=== PATIENT | female | born 1950 | race Caucasian/White ===

== ENCOUNTER → 2020-01-29 13:57 | Outpatient (CLI) | payer MEDICARE, BC, SELFPAY ==
--- NOTE | ~2020-01-29 | XR_ITS ---
EXAMINATION: XR chest 2V 01/29/2020 14:20 INDICATION: Bronchitis PROCEDURE: 2 view chest COMPARISON: No prior studies for comparison. FINDINGS: The lungs are clear. The cardiomediastinal silhouette is within normal limits. There are no pleural effusions. There is no pneumothorax suspected. IMPRESSION: 1: NO ACUTE CARDIOPULMONARY DISEASE. Reviewed, dictated and finalized at location B. RANCE EXAMINER
== END ==
DX: J40 Bronchitis, not specified as acute or chronic (principal)
CPT/HCPCS: 71046

== ENCOUNTER 2020-05-03 10:45 | Outpatient (CLI) | payer MEDICARE, BC, SELFPAY ==
--- NOTE | ~2020-05-03 | MR_ITS ---
EXAMINATION: MR brain/brain stem wo con EXAM DATE: 05/03/2020 11:39 INDICATION: Dizziness, symptoms one year. TECHNIQUE: Magnetic resonance imaging (MRI) of the brain/brain stem obtained without contrast. Briseidaitt al T1, axial diffusion, gradient echo (T2*), T1, T2, FLAIR sequences obtained. There is no prior st udy for comparison. FINDINGS: There are no areas of restricted diffusion to suggest acute infarction. There is no acute hemorrhage seen on the T2*, a hemosiderin sensitive sequence. No intraparenchymal brain mass. The ve ntricles are normal in size. There are no extra-axial collections. Flow voids are seen in the cereb ral arteries on the T2-weighted sequences consistent with their expected patency. The orbits are unr emarkable. Soft tissue is unremarkable. IMPRESSION: 1. Unremarkable brain MRI examination. Reviewed, dictated and finalized at location A.
== END 2020-05-03 10:46 | disposition home or self-care (01) ==
DX: R42 Dizziness and giddiness (principal)
CPT/HCPCS: 70551

== ENCOUNTER 2020-06-26 14:44 | Outpatient (CLI) | payer MEDICARE, BC, SELFPAY ==
--- NOTE | 2020-06-26 | ECG_ITS ---
Measurements Intervals [place] Rate: 79 P: 72 [place]: 136 QRS: 18 QRSD: 85 T: 64 QT: 386 QTc: 443 Interpretive Statements SINUS RHYTHM POSSIBLE LEFT ATRIAL ENLARGEMENT EARLY PRECORDIAL R/S TRANSITION BASELINE ARTIFACT- I, III, AVL, AVF BORDERLINE ECG Electronically Signed On 06-26-2020 16:32:54 CDT by Dino Dunn D.O.
== END 2020-06-26 14:45 | disposition home or self-care (01) ==
LOC: ANHLAB 14:53 → ANHCARD 14:54
DX: M20.11 Hallux valgus (acquired), right foot (principal)
CPT/HCPCS: 93005

== ENCOUNTER 2021-03-19 07:37 | Outpatient (CLI) | payer MEDICARE, BC, SELFPAY ==
--- NOTE | ~2021-03-19 | US_ITS ---
EXAMINATION: US abdomen complete DATE: 03/19/2021 08:27 INDICATION: Abnormal findings on diagnostic imaging of other specified body structure. TECHNIQUE: Multiple grayscale and Doppler ultrasound images of the abdomen were obtained. COMPARISON: None FINDINGS: Abdominal aorta is normal in caliber. Inferior vena cava is normal. The visualized portions of the head, body, and tail of the pancreas are normal. The liver is normal without focal lesion. No liver surface nodularity. The gallbladder is normal in size. No gallstones or gallbladder wall thick ening. There was no sonographic Carlson sign. The common duct is normal and measures 4 mm. Right kidne y measures 9.0 x 3.8 x 5.3 cm. Left kidney measures 9.0 x 3.9 x 3.6 cm. The spleen is normal in size. IMPRESSION: 1. Normal complete abdomen ultrasound. Reviewed, dictated and finalized at location D.
== END 2021-03-19 07:38 | disposition home or self-care (01) ==
PROVIDERS: PCP Family Medicine; Visit Provider Family Medicine
DX: R93.89 Abnormal findings on diagnostic imaging of other specified body structures (principal)
CPT/HCPCS: 76700

== ENCOUNTER → 2021-07-01 12:12 | Outpatient (CLI) | payer MEDICARE, BC, SELFPAY ==
--- NOTE | ~2021-07-01 | MR_ITS ---
EXAMINATION: MR shoulder RT wo con DATE: 07/01/2021 13:02 INDICATION: Right rotator cuff tear. Right shoulder pain. TECHNIQUE: Magnetic resonance imaging (MRI) of the right shoulder was performed without intravenous c ontrast. Sequences included axial PD-weighted FS FSE, coronal oblique PD-weighted FS FSE and T2-weigh daniel FS FSE, and sagittal oblique T2-weighted FS FSE and T1-weighted FSE. COMPARISON: None. FINDINGS: Coracoacromial arch: The acromion undersurface is curved in morphology (type II). There is mild osteoarthritis of acromioc lavicular joint including inferiorly directed osteophytes. There is mild subacromial/subdeltoid bursi tis. Rotator cuff: There is moderate supraspinatus and infraspinatus tendinopathy. Teres minor tendon is normal. Subscap ularis tendon is normal. There is no asymmetric fatty atrophy of the rotator cuff muscle bellies. Biceps tendon and glenoid labrum: Biceps tendon is in bicipital groove. Intra-articular biceps tendon is normal. The glenoid labrum is intact. Fluid: There is no glenohumeral joint effusion. Bones/cartilage: Glenoid cartilage is normal. Humeral head cartilage is normal. IMPRESSION: 1. Moderate rotator cuff tendinopathy. No tear. 2. Mild acromioclavicular joint osteoarthritis. 3. Mild subacromial/subdeltoid bursitis. Reviewed, dictated and finalized at location A.
== END ==
PROVIDERS: PCP Family Medicine; Visit Provider Family Medicine
DX: M19.011 Primary osteoarthritis, right shoulder (principal); M75.51 Bursitis of right shoulder
CPT/HCPCS: 73221

== ENCOUNTER → 2021-08-18 14:20 | Outpatient (CLI) | payer MEDICARE, BC, SELFPAY ==
--- NOTE | ~2021-08-18 | XR_ITS ---
EXAMINATION: SACRUM/COCCYX DATE: 08/18/2021 14:50 INDICATION: Low back pain TECHNIQUE: Three views sacrum/coccyx FINDINGS: No prior studies for comparison. There is no displaced fracture of the sacrum. The coccyx demonstrates overall normal morphology with out acute angulation. IMPRESSION: 1. No acute displaced osseous abnormality of the sacrum. Suspicion for occult or nondisplaced sacral fracture can either be evaluated with CT or MRI. 2. Grossly normal morphology to the coccyx without acute angulation. However, due to the wide range of normal variation of the coccyx, acute injury would be best evaluated by clinical examination and patient's symptoms. Reviewed, dictated and finalized at location A.
--- NOTE | ~2021-08-18 | XR_ITS ---
EXAMINATION: XR pelvis 1-2V DATE: 08/18/2021 14:50 INDICATION: Myalgia with right buttock pain. TECHNIQUE: An anteroposterior view of the pelvis was obtained. COMPARISON: 08/18/2021 FINDINGS: Bone alignment is normal. No fracture or suspected avascular necrosis. Bilateral hip and sacroiliac j oint spaces are normal. A few phleboliths in the pelvis. IMPRESSION: 1. No acute osseous abnormality. Reviewed, dictated and finalized at location A.
== END ==
PROVIDERS: PCP Family Medicine; Visit Provider Family Medicine
DX: M79.18 Myalgia, other site (principal)
CPT/HCPCS: 72170; 72220

== ENCOUNTER → 2022-06-21 16:52 | Outpatient (CLI) | payer MEDICARE, BC, SELFPAY ==
--- NOTE | ~2022-06-21 | XR_ITS ---
EXAMINATION: XR chest 2V Exam Date/Time: 06/21/2022 17:03 CDT HISTORY: Weight loss Comparison: 01/29/2020. RESULT: Lines, tubes, and devices: None. Lungs and pleura: Clear. Cardiomediastinal silhouette: Stable. Other: No acute osseous or upper abdominal finding. IMPRESSION: No acute cardiopulmonary process. Reviewed, dictated and finalized at location K.
== END ==
PROVIDERS: PCP Family Medicine; Visit Provider Family Medicine
DX: R63.4 Abnormal weight loss (principal)
CPT/HCPCS: 71046

== ENCOUNTER 2022-09-22 12:30 | Outpatient (RCR) | payer MEDICARE, BC, SELFPAY ==
--- NOTE | 2022-08-18 09:54 | OTOPEVAL1 ---
Assessment and note entered by Esteban Rubi, KEMI/Kirstin, CHT Evaluation Information Assessment Status Evaluation Diagnosis Parkinson's Disease Subjective Information Diagnosis was about a year ago, but patient and her note symptoms for maybe the last 10 years. Patient lives at home with her and reports being currently independent with ADLs. Reports decline in her ability to complete hand writing tasks, reaching into cabinets, cutting meat, and drinking out of a cup without spilling due to her posture. She frequently notes, I want to be able to sit and stand straight up noting a decline in her posture and being forward flexed all day. He takes care of the housework and did prior to patient's recent decline in physical abilities. She states that her posture and balance have made her feel unsafe to try to exercise and walk. She reports no falls at home. She sometimes uses a w/w for mobility, but most of the time does not. She began taking medication for Parkinson's about a month ago. Reported Pain Level Pain Score 3: Self Report Additional Pain Score Comments No pain at rest. Reports back pain at night and when waking up in the morning. Assessment OT Clinical Summary Yolande is referred to outpatient OT with PD. She and her state that she has had her biggest functional decline due to her forward posture and decreased balance. At this time she has intact functional UE strength and coordination. Her functional deficits are all related to the posture and balance for which PT will be addressing at this clinic. No further skilled OT indicated at this time. Plan of Care OT Services Indicated No These treatments will address the objective and functional deficits as defined above. The patient will be advanced safely and appropriately in order for the patient to progress towards his/her prior level of function. Additional exercises will be introduced and as well as a comprehensive home exercise program upon discharge, if needed, ?to ensure carryover of functional gains achieved in the clinic. This treatment plan has been reviewed and agreement upon by the patient.
--- NOTE | 2022-08-18 11:14 | PTOPEVAL1 ---
Assessment and note entered by Randa Pollock, PT Evaluation Information Assessment Status Evaluation Diagnosis Parkinson's Disease Onset Nov 2021 Subjective Information pt and report: issues with balance, walking, reaching up with arms; taking sinemet 3x/ day, have increased to full dose for the past 2 weeks; feel it has helped a little; have not had any falls; want to be able to walk outside and stand upright; Reported Pain Level Pain Score 5: Self Report Pain Score range of 0-5/10 Additional Pain Score Comments pain in low back, R hip--anterior and posterior; and L distal ribs; reports feel heavy over her whole body and pulling her down; Additional Pain Score Comments No pain at rest. Reports back pain at night and when waking up in the morning. Assessment PT Clinical Summary Yolande has the diagnosis of Parkinson's Disease. Her was present during the evaluation. Her self assessment functional activity rating is 84% limitation in activity: her tasks:hand writing , reaching up to shelves, drinking out of cup, cutting up meat, sitting and standing up straight; With the evaluation, she has decreased score with Mendez balance score of 46/56, 2 minute walking distance of 320', poor standing and gait positioning of her back, weakness of trunk and hips and poor walking pattern. Skilled PT services are indicated to increase LE strength, transfer, gait and balance skills, to improve posture/positioning and education for home exercises and posture. Plan of Care Interventions Gait Training,Neuro Re-education,Patient/Caregiver Education,Therapeutic Activities,Therapeutic Exercise,Self-Care/Home Management PT Services Indicated Yes Treatment Frequency and 2x/wk for 5 weeks Duration These treatments will address the objective and functional deficits as defined above. The patient will be advanced safely and appropriately in order for the patient to progress towards his/her prior level of function. Additional exercises will be introduced and as well as a comprehensive home exercise program upon discharge, if needed, ?to ensure carryover of functional gains achieved in the clinic. This treatment plan has been reviewed and agreement upon by the patient.
--- NOTE | 2022-09-16 12:57 | PCPTNOTE ---
Patient called & cancelled scheduled appointment this date due to having a Dr's appointment.
--- NOTE | 2022-09-22 13:38 | PTOPDC ---
Assessment and note entered by Randa Pollock, PT Evaluation Information Assessment Status discharge Diagnosis Parkinson's Disease Onset Nov 2021 Subjective Information Yolande and her report: better--now can reach to the hook on the wall to hang up her robe; have the video to do the LSVT exercises; has not had any falls; better endurance with the exercises and activities; occassionally go out to eat and in community; limited by R hip pain-- going to have MRI; have a better attitude about things--looking into using the [employer] bus for transportation since no longer driving; want more exercises to do for legs to get stronger; Reported Pain Level Pain Score : Self Report Additional Pain Score Comments to have MRI of her hip; back continues to have pain; pain range of 2-10 in R hip and back Assessment PT Clinical Summary Yolande has received 9 PT sessions. Today's self assessment with the functional scale of activities: hand writing 4/10, reaching up to light cord 8/10, drinking 5/10, cutting meat 4/10 and sit/standing straight trunk 5/10= 26/50=48% limitation. Compared to the initial evaluation, she has improved in all areas: LE strength, 2 minute walking distance increased 130'; Mendez balance score increased 6 points; standing posture improved; transfer and safety with sit/stand ; able to transfer sit<> floor with use of UE on mat indep; Education has been completed for HEP and LSVT home exercises. Discharge PT services. Pt and her agreed to discharge. Plan of Care PT Services Indicated No
== END 2022-09-22 15:06 | disposition home or self-care (01) ==
LOC: ANHPT 12:30
PROVIDERS: PCP Family Medicine
DX: G20 Parkinson's disease (principal)
CPT/HCPCS: 97110; 97112; 97116; 97162; 97166; 97530

== ENCOUNTER 2022-10-06 10:53 | Outpatient (CLI) | payer MEDICARE, BC, SELFPAY ==
--- NOTE | ~2022-10-06 | MR_ITS ---
EXAMINATION: MR hip RT wo con DATE: 10/06/2022 12:15 INDICATION: Right hip pain TECHNIQUE: Magnetic resonance imaging (MRI) of the right hip was performed without intravenous contr ast. Sequences included full-field axial PD-weighted FS FSE and T1-weighted FSE, coronal of the pelvi s with PD-weighted FS FSE, T2-weighted FSE and T1-weighted FSE, small field of view of the right hip with axial PD-weighted FS FSE, sagittal PD-weighted FS FSE, coronal PD-weighted FS FSE and coronal T2 weighted FSE. Additional radial T1-weighted FGR oriented orthogonal to the acetabular rim were obt ained for evaluation of the labrum. COMPARISON: Pelvis radiographs dated 09/17/2021 FINDINGS: Bones/labrum/cartilage: Alignment is normal. No fracture or avascular necrosis. There is an 11 mm lesion in the left innomin ate bone along side the sacral iliac joint which demonstrates mildly decreased T1 signal relative to the surrounding halo marrow which remains hyperintense to the adjacent skeletal muscle and which some was is minimally hypointense to the surrounding ill marrow on the fat-saturated PD-weighted images m ost likely representing a small focus of residual red marrow. No other suspicious bone lesions identi fied. There is a tear of the anterosuperior to superolateral right acetabular labrum. There is mild o steoarthritis with mild partial-thickness cartilage loss anterosuperiorly. Mild to moderate lower lum bar spondylosis. Fluid: Symmetric physiologic amount of fluid within both hip joints. Soft tissues: Normal and symmetric muscle bulk and signal in the pelvis and visualized proximal thighs. Mild tendin opathy of the right ischial tuberosity origin of the proximal right hamstring tendons. The bilateral iliopsoas, gluteal and left proximal hamstring tendons are normal. The uterus is not identified and h as likely been surgically resected. Limited evaluation of visceral organs of the pelvis is otherwise unremarkable. No pathologically enlarged pelvic/inguinal lymphadenopathy. IMPRESSION: 1. Mild right hip osteoarthritis with tear at the anterosuperior to superolateral right acetabular la jasmin. 2. Mild tendinopathy without tear at the right ischial tuberosity origin of the proximal right hamstr ing tendons. 3. Mild to moderate lower lumbar spondylosis. Reviewed, dictated and finalized at location A. ALMIC TECH IMPRESSION: 1. Mild right hip osteoarthritis with tear at the anterosuperior to superolater al right acetabular labrum. 2. Mild tendinopathy without tear at the right ischial tuberosity origin of the proximal right hamstring tendons. 3. Mild to moderate lower lumbar spondylosis.
== END 2022-10-06 10:54 | disposition home or self-care (01) ==
PROVIDERS: PCP Family Medicine
DX: M25.551 Pain in right hip (principal)
CPT/HCPCS: 73721

== ENCOUNTER 2023-04-30 11:24 | Emergency (ER) | payer MEDICARE, BC, SELFPAY ==
[2023-04-30 11:39] VITALS: BP 121/77; PULSE 79; RESP 16; TEMP 36.4; O2SAT 100
--- NOTE | 2023-04-30 11:50 | ED.EAR ---
HPI - Ear Problem General Chief complaint: Ear Stated complaint: ear ache Time Seen by Provider: 04/30/23 11:39 Source: patient and RN notes reviewed Mode of arrival: ambulatory Limitations: no limitations History of Present Illness HPI Narrative: Patient presents today complaining of right ear pain x2 days. Hearing is normal and patient denies drainage. She currently rates her pain 7/10 and states the pain is intermittent and sharp, and increases with swallowing. She has been taking Tylenol without relief. Denies any additional symptoms to include congestion, rhinorrhea, postnasal drip, cough. Related Data Home Medications Medication Instructions Recorded Confirmed carbidopa 25 mg-levodopa 100 mg 1 tablet PO TID 12/05/22 04/30/23 disintegrating tablet Allergies Allergy/AdvReac Type Severity Reaction Status Date / Time diclofenac Allergy Unknown Other Verified 04/30/23 11:36 Review of Systems Review of Systems: CONSTITUTIONAL: Denies body aches, fever, chills, or sweats. EYES: Denies visual changes, redness, or discharge. ENT: Denies rhinorrhea, congestion, sore throat. + right ear pain CARDIOVASCULAR: Denies chest pain, palpitations, or edema. RESPIRATORY: Denies cough or dyspnea. GASTROINTESTINAL: Denies abdominal pain, nausea, vomiting, or diarrhea. GENITOURINARY: Denies dysuria or hematuria. SKIN: Denies rash, itching, or wounds. MUSCULOSKELETAL: Denies back pain, joint pain, or myalgia. NEUROLOGIC: Denies headache, numbness, tingling, or weakness. PSYCH: Denies depression or anxiety. [facility] Past Medical History Medical History Deviated septum 2018 Surgical History Surgical History H/O rhinoplasty 1971 History of bunionectomy 1975 & 2020 History of partial hysterectomy 1988 History of surgical removal of ganglion cyst 2014 Hx of tonsillectomy 1989 Family History Family History Other Heart disease Hypertension Social History Social History Smoking status: Former smoker Tobacco type: cigarettes Alcohol intake: current Comments At time of signature, I have reviewed and agree with nursing past medical, surgical, social and family history unless otherwise noted. Please see nursing chart for further information. There is no relevant family history pertinent to the presenting complaint Exam Narrative: GENERAL: Well-appearing, well-nourished, and in no acute distress. HEAD: Normocephalic, atraumatic. EYES: EOMI. No redness or drainage. Conjunctivae normal. ENT: Mucous membranes pink and moist. Nares clear. No rhinorrhea. Left TM normal. Right TM injected and bulging. NECK: Normal AROM. CHEST: No respiratory distress. EXTREMITIES: Normal range of motion. No edema. SKIN: Warm, dry, no rash. Capillary refill normal. Normal skin turgor. NEURO: No focal deficits. Alert and oriented x3. Gait steady. PSYCH: Normal affect. No signs of depression or anxiety. Course Course Level of Care: Express Care Visit Vital Signs Vital signs: Vital Signs Temperature 97.5 F L 04/30/23 11:39 Pulse Rate 79 04/30/23 11:39 Respiratory Rate 16 04/30/23 11:39 Blood Pressure 121/77 04/30/23 11:39 Pulse Oximetry 100 04/30/23 11:39 Temperature 97.5 F L 04/30/23 11:39 Pulse Rate 79 04/30/23 11:39 Respiratory Rate 16 04/30/23 11:39 Blood Pressure 121/77 04/30/23 11:39 Pulse Oximetry 100 04/30/23 11:39 Reviewed. Pt has been instructed to follow up with her PCP regarding her elevated blood pressure today. Medical Decision Making MDM Narrative Medical decision making narrative: Exam consistent with otitis media. Will treat patient with amoxicillin. Instructed to take ibuprofen(has taken before wi
== END 2023-04-30 12:00 | disposition home or self-care (01) ==
PROVIDERS: Emergency Provider Nurse Practitioner; PCP Family Medicine
DX: H66.91 Otitis media, unspecified, right ear (principal); Z87.891 Personal history of nicotine dependence
CPT/HCPCS: 99213; G0463